=== PATIENT | female | born 1955 | race Caucasian/White ===

== ENCOUNTER 2020-07-24 20:32 | Emergency (ER) | payer OTHER ==
[~2020-07-24] VITALS: Ht 160 cm; Wt 104.3 kg
[~2020-07-24 20:32] MED LIST: DIAZEPAM 10 MG10 M1 OR; DILAUDID8 MG PO; LIORESAL 10 MG10 MG PO; MOBIC15 MG PO; NEURONTIN 300300 M1 PO; POTASSIUM20 PO; SLOW-MAG64 MG PO; VISTARIL 25 MG25 M1 PO
[2020-07-24 21:55] LABS: ABSOLUTE NEUTROPHILS 5.9 thou/uL (1.4-8.2); BASOPHILS 0.9 % (0.0-2.0); HEMOGLOBIN 13.9 gm/dL (12.0-15.0); LYMPHOCYTES 23.4 % (24.0-44.0); MCH 30.3 pg (26.0-34.0); MCV 89.1 fL (80.0-100.0); MONOCYTES 4.9 % (1.0-8.0); PLATELET COUNT 258 thou/uL (150-400); POLYS 68.8 % (36.0-66.0); RDW 13.1 % (10.5-14.5); WBC 8.6 thou/uL (4.0-11.0)
[2020-07-24 21:59] LABS: ANION GAP 9 mmol/L (7-16); BUN 16 mg/dL (7-18); CHLORIDE 105 mmol/L (98-107); CO2 26 mmol/L (21-32); CREATININE 1.1 mg/dL (0.6-1.0); GLUCOSE 109 mg/dL (74-106); SODIUM 140 mmol/L (136-145)
[2020-07-24 22:10] LABS: ALBUMIN 3.9 g/dL (3.4-5.0); DIRECT BILIRUBIN 0.1 mg/dL (<0.1-0.2); SGOT 21 U/L (15-37); SGPT 20 U/L (30-65); TOTAL BILIRUBIN 0.4 mg/dL (0.2-1.0); TOTAL PROTEIN 7.5 g/dL (6.4-8.2); TROPONIN-I <0.06 ng/mL (<0.06)
[2020-07-24] MEDS ORDERED: ULTRAM 50MG TAB50 MG PO (23:53)
[2020-07-24 23:56] VITALS: BP 112/60
--- NOTE | 2020-07-25 08:31 | EKG ---
[facility] [place] [address] ELECTROCARDIOGRAM REPORT Name: SUJATA VACA Room #: DEP [place]#: [id number] Admission: 07/24/20 Attend Phys: Discharge: 07/24/20 Date of : 51 Report #: [id number] THIS REPORT FOR: cc: ANGELA - Zoya family physician/PCP ANGELA - Zoya family physician/PCP Valdo De MD [facility] THIS REPORT FOR: //name// [facility] ED Test Date: 2020-07-24 Test Time: 20:46:01 Pat Name: SUJATA VACA Department: Room: Gender: F [employer] Operator: [facility] : 1955 Requested By: Marie Hughes Order Number: [id number] MD: Valdo De Measurements Intervals [place] Rate: 96 P: 63 WI: 178 QRS: -49 QRSD: 101 T: 31 QT: 366 QTc: 463 Interpretive Statements Sinus rhythm Left anterior hemiblock Right ventricular conduction delay Abnormal R-wave progression, late transition Compared to ECG 06/19/2016 16:56:31 No significant change was found Electronically Signed On 07-25-2020 8:31:12 CDT by Valdo De [email or web address] <ELECTRONICALLY SIGNED> By: Valdo De MD, [facility] 07/25/20 0831 45 Valdo De MD, [facility] /EPI
== END 2020-07-24 23:56 | disposition home or self-care (01) ==
LOC: ER 20:32
PROVIDERS: Emergency Medicine
DX: R07.9 Chest pain, unspecified (principal); R00.2 Palpitations; R11.0 Nausea; R06.02 Shortness of breath; I10 Essential (primary) hypertension; F32.9 Major depressive disorder, single episode, unspecified; F41.9 Anxiety disorder, unspecified; J44.9 Chronic obstructive pulmonary disease, unspecified; Z86.14 Personal history of Methicillin resistant Staphylococcus aureus infection; Z79.899 Other long term (current) drug therapy